=== PATIENT | female | born 1950 | race Caucasian/White ===

== ENCOUNTER 2018-11-29 09:20 | Day surgery (SDC) | payer MEDICARE, OTHER ==
[~2018-11-29 09:20] MED LIST: CEFAZOLIN 2 GM/D5W RTU 2 GM/50 ML RTUPB IV PRN
[2018-11-29] MEDS ORDERED: CEFAZOLIN 1 GM/D5W RTU 0 GM/0 ML RTUPB IV ONE (09:21)
[2018-11-29] MEDS ORDERED: CEFAZOLIN 2 GM/D5W RTU 2 GM/50 ML RTUPB IV ONE (09:23)
[2018-11-29] MEDS ORDERED: METOCLOPRAMIDE HCL INJ/PF 10 MG/2 ML SDV ONE (10:24)
[2018-11-29 10:25] LABS: ABSOLUTE EOSINOPHILS # (AUTO) 0.2 10^3/uL (0.0-0.6); ABSOLUTE LYMPHOCYTES (AUTO) 1.8 10^3/uL (0.5-4.7); ABSOLUTE MONOCYTES (AUTO) 0.8 10^3/uL (0.1-1.4); ABSOLUTE NEUT (AUTO) 3.5 10^3/uL (1.7-8.2); BASOPHILS % (AUTO) 0.7 % (0-2); EOSINOPHILS % (AUTO) 3.8 % (0-6); HEMATOCRIT 37.9 % (36.0-47.0); HEMOGLOBIN 12.7 g/dL (12.0-15.5); LYMPHOCYTES % (AUTO) 28.3 % (13-45); MEAN CORPUSCULAR HEMOGLOBIN 30.2 pg (27.0-33.4); MEAN CORPUSCULAR HGB CONC 33.5 g/dL (32.0-36.0); MEAN CORPUSCULAR VOLUME 90 fl (80-97); MONOCYTES % (AUTO) 12.2 % (3-13); PLATELET COUNT 218 10^3/uL (150-450); RED CELL DISTRIBUTION WIDTH 13.7 % (11.5-14.0); TOTAL CELLS COUNTED % (AUTO) 100 %; WHITE BLOOD COUNT 6.3 10^3/uL (4.0-10.5)
[2018-11-29] MEDS ORDERED: FAMOTIDINE INJ/PF 20 MG/2 ML SDV IV ONE (10:25)
[2018-11-29 10:49] LABS: ANION GAP 8 (5-19); BLOOD UREA NITROGEN 20 mg/dL (7-20); CALCIUM 9.5 mg/dL (8.4-10.2); CARBON DIOXIDE 27 mmol/L (22-30); CHLORIDE 105 mmol/L (98-107); GLUCOSE 123 mg/dL (75-110); POTASSIUM 4.3 mmol/L (3.6-5.0); SODIUM 140.1 mmol/L (137-145)
[2018-11-29] MEDS ORDERED: FENTANYL CITRATE INJ/PF 250 MCG/5 ML AMPULE ONE (12:05)
[2018-11-29] MEDS ORDERED: MIDAZOLAM 2 MG/2 ML INJ ONE (12:06)
[2018-11-29] MEDS ORDERED: PROPOFOL INJ 200 MG/20 ML VIAL IV ONE (12:06)
[2018-11-29] MEDS ORDERED: BUPIVACAINE HCL 0.5 % INJ/PF 30 ML SDV ONE (12:27)
[2018-11-29] MEDS ORDERED: FENTANYL CITRATE INJ/PF 100 MCG/2 ML AMPUL IV PRN ×3 (13:10)
[2018-11-29] MEDS ORDERED: MORPHINE SULFATE 10 MG/ML INJ IV PRN (13:10)
[2018-11-29] MEDS ORDERED: DIPHENHYDRAMINE HCL 50 MG/ML VIAL IV PRN (13:10)
[2018-11-29] MEDS ORDERED: PROMETHAZINE HCL INJ 25 MG/1 ML VIAL IV PRN ×2 (13:10)
[2018-11-29] MEDS ORDERED: MEPERIDINE HCL/PF INJ 25 MG/1 ML DISP.SYRIN IV PRN (13:10)
[2018-11-29] MEDS ORDERED: OXYCODONE-ACETAMINOPHEN 5-325 MG TABLET PO PRN ×3 (13:10→15:12)
[2018-11-29] MEDS ORDERED: MINERAL OIL (STERILE) 10 ML VIAL ONE (13:46)
[2018-11-29] MEDS ORDERED: VECURONIUM BROMIDE INJ 10 MG VIAL IV ONE (13:53)
[2018-11-29] MEDS ORDERED: ROCURONIUM BROMIDE INJ 50 MG/5 ML VIAL IV ONE (13:53)
[2018-11-29] MEDS ORDERED: KETOROLAC TROMETHAMINE 60 MG/2 ML SDV ONE (13:53)
[2018-11-29] MEDS ORDERED: LIDOCAINE 2% INJ-PF (20 MG/ML) 2 ML AMPUL ONE (13:53)
[2018-11-29] MEDS ORDERED: NEOSTIGMINE METHYLSULFATE 10 MG/10 ML VIAL ONE (13:53)
[2018-11-29] MEDS ORDERED: DEXAMETHASONE SOD PHOSPHATE INJ 4 MG/1 ML VIAL ONE (13:53)
[2018-11-29] MEDS ORDERED: GLYCOPYRROLATE 1 MG/5 ML VIAL ONE (13:53)
[2018-11-29] MEDS ORDERED: ONDANSETRON HCL INJ/PF 4 MG/2 ML SDV ONE (13:53)
--- NOTE | 2018-11-29 14:58 | OPERATIVE REPORT E ---
Operative Report NAME: AURELIA KING : 1950 AGE: 68Y DATE OF SURGERY: 11/29/2018 ROOM: PREOPERATIVE DIAGNOSIS: Right thumb carpometacarpal arthritis. POSTOPERATIVE DIAGNOSES: 1. Right thumb carpometacarpal arthritis. 2. Scaphotrapezoid arthritis. OPERATION: 1. Carpometacarpal arthroplasty. 2. Ligament reconstruction with abductor pollicis longus free tendon graft. 3. Tendon transfer extensor pollicis brevis to abductor pollicis longus. 4. Partial excision of trapezoid. 5. De Quervain release. SURGEON: MONIQUE SANTOS M.D. ANESTHESIA: General. ESTIMATED BLOOD LOSS: Minimal. COMPLICATIONS: None. 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 She has undergone numerous cortisone injections with intermittent pain relief. She has failed nonoperative treatment and is indicated for surgery. DESCRIPTION OF PROCEDURE: Following the induction of a general anesthetic and administration of antibiotics, the patient was positioned supine on the operating room table. All bony prominences were padded. A tourniquet was placed proximally on the right arm but not inflated. The right upper extremity was sterilely prepped with ChloraPrep and draped in standard fashion. The arm was exsanguinated and the tourniquet inflated to 100 mm above systolic pressure. An incision was made longitudinally from the mid area of the thumb metacarpal proximally to the radial styloid. Sharp incision was performed through skin. Blunt dissection was performed through the subcutaneous tissue with care taken to identify and protect superficial branching nerves as well as the radial artery. These were mobilized and protected. The first dorsal extensor compartment was opened, performing a de Quervain release, and tendons were retracted. Full capsular flaps were raised from the thumb metacarpal and trapezium. The trapezium was excised in its entirety. There were multiple osteophytes noted as well as multiple loose bodies, which were all removed. On putting traction on the index and middle fingers it was noted that there was arthritis between the scaphoid and base of the trapezoid. An osteotome was used and 2 mm of the proximal trapezoid was removed. Reconstruction was used with the suspensionplasty technique described by [employer] with SwiveLock suture anchors. A 2 mm free slip of the APL tendon was harvested. It was whipstitched. This tendon as well as a FiberTape was docked with one hole into the radial aspect of the thumb metacarpal and one into the base of the second metacarpal, achieving excellent stability. The wound was irrigated. The capsule was imbricated side to side using 2-0 Vicryl suture. Subcutaneous tissue was closed with 2-0 Vicryl suture. Skin was reapproximated with Monocryl. Dermabond closure was also performed and Steri-Strips were applied. A 0.25% Marcaine was injected for postoperative analgesia, and a sterile dressing was applied. Of note, prior to closure the EPB tendon was sutured to the base of the metacarpal at the APL insertion and tenotomized distally to prevent later MP joint hyperextension. DICTATING PHYSICIAN: MONIQUE SANTOS M.D. [id number] Y#: [id number] ID: [id number] JOB#: [id number] ACCT: [id number] cc:MONIQUE SANTOS M.D. >
[2018-11-29] MEDS ORDERED: ONDANSETRON HCL INJ/PF 4 MG/2 ML SDV IV PRN (15:13)
[2018-11-29] MEDS ORDERED: OXYCODONE-ACETAMINOPHEN 5-325 MG TABLET ONE (16:06)
[2018-11-29 20:36] VITALS: BP 119/60
--- NOTE | 2018-11-29 22:44 | EKG REPORT ---
SEVERITY:- ABNORMAL ECG - SINUS RHYTHM LEFT AXIS DEVIATION LEFT VENTRICULAR HYPERTROPHY : Confirmed by: Margaux Pérez MD 29-Nov-2018 22:43:55
== END 2018-11-29 17:10 | disposition home or self-care (01) ==
LOC: OROUT 09:20
PROVIDERS: ATTEND Orthopaedic Surgery
DX: M77.11 Lateral epicondylitis, right elbow (principal); M18.11 Unilateral primary osteoarthritis of first carpometacarpal joint, right hand; M65.4 Radial styloid tenosynovitis [de Quervain]; E11.9 Type 2 diabetes mellitus without complications; E78.00 Pure hypercholesterolemia, unspecified; I10 Essential (primary) hypertension; Z79.899 Other long term (current) drug therapy
CPT/HCPCS: 36415; 85025; 80048; 93005; 93010; 01830; 25000; 25447; 26480; J2250; J3490 ×6; J1100; J3010; J1885; J2765; J2710; A9270; J2405; J2704; S0028; J0690; 1830